=== PATIENT | female | born 1980 | race African-American/Black ===

== ENCOUNTER 2017-04-07 17:52 | Emergency (ER) | payer BC ==
[~2017-04-07] VITALS: Ht 172.7 cm; Wt 106.8 kg
[~2017-04-07 17:52] MED LIST: ZOLP12.52 PO; birth control PO
[2017-04-07] MEDS ORDERED: MAALOX/HYOSCYAMINE/LIDOCAINE 45 ML BOTTLE PO ONE (18:30)
[2017-04-07] MEDS ORDERED: ONDANSETRON ODT 4 MG PO ONE (18:30)
[2017-04-07] MEDS ORDERED: MAALOX/HYOSCYAMINE/LIDOCAINE 45 ML BOTTLE ONE (18:40)
[2017-04-07] MEDS ORDERED: ONDANSETRON ODT 4 MG ONE (18:40)
[2017-04-07 19:28] LABS: ASPARTATE AMINO TRANSFERASE 80 U/L (15-37); BLOOD UREA NITROGEN 20 mg/dL (7-18)
[2017-04-07] MEDS ORDERED: HYDROcodone/APAP 5/325 TABLET ONE (20:58)
[2017-04-07] MEDS ORDERED: FAMOTIDINE 20 MG TABLET ONE ×2 (20:59→21:03)
[2017-04-07] MEDS ORDERED: FAMOTIDINE 20 MG TABLET PO ONE (21:00)
[2017-04-07] MEDS ORDERED: HYDROcodone/APAP 5/325 TABLET PO ONE (21:00)
[2017-04-07 21:12] VITALS: BP 112/68
== END 2017-04-07 21:14 | disposition home or self-care (01) ==
LOC: ED 18:47
DX: R10.13 Epigastric pain (principal)
CPT/HCPCS: 36415; 74020; 76830; 80053; 83690; 84703; 85025; 99285; Q0162

== ENCOUNTER 2017-08-26 21:37 | Emergency (ER) | payer BC ==
[~2017-08-26] VITALS: Ht 172.7 cm; Wt 117.0 kg
[2017-08-26 23:34] VITALS: BP 122/68
== END 2017-08-26 23:36 | disposition home or self-care (01) ==
LOC: ED 23:05
DX: F10.120 Alcohol abuse with intoxication, uncomplicated (principal); Z98.84 Bariatric surgery status; Y92.481 Parking lot as the place of occurrence of the external cause
CPT/HCPCS: 99284